=== PATIENT | female | born 1945 | race Caucasian/White ===

== ENCOUNTER 2020-09-02 14:11 | Emergency (ER) | payer MEDICARE ==
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
[2020-09-02] MEDS ORDERED: Zofran 4 MG/2 ML VIAL ONE (16:23)
[2020-09-02] MEDS ORDERED: Hydromorphone 1 mg/ml Injection ONE ×2 (16:23→19:56)
[2020-09-02] MEDS: Hydromorphone 1 mg/ml Injection IV ONE ×2 (16:24→19:57)
[2020-09-02] MEDS: Zofran 4 MG/2 ML VIAL IV ONE (16:24)
--- NOTE | 2020-09-02 16:30 | XRAY ---
Indication: Pain following fall. Multiple contiguous axial images obtained through the cervical spine. Sagittal and coronal reformatted images obtained. Comparison: None Age-appropriate osteopenia. Axial images negative for acute fracture, suspicious bony lesions, or spinal canal stenosis. There is mild/moderate C4-C7 degenerative endplate spurring and mild/moderate multilevel bilateral degenerative facet hypertrophy. Additional mild atlantoaxial joint of arthropathy. Sagittal and coronal reformatted images demonstrates lordotic straightening, positional versus paraspinal spasm. Mild dextroscoliosis and C4-C7 degenerative disc space loss. No acute compression fracture, subluxation, or jumped facet. Normal appearing craniocervical junction. Visualized noncontrasted soft tissues demonstrates mild bilateral carotid calcifications. Base of the brain and lung apices unremarkable. Impression: 1. Lordotic straightening, positional versus paraspinal spasm. 2. Negative acute fracture/subluxation. 3. Osteopenia and multilevel degenerative changes.
--- NOTE | 2020-09-02 16:34 | XRAY ---
Indication: Pain following fall. Multiple contiguous axial images obtained through the lumbar spine. Sagittal and coronal reformatted images obtained. Comparison: None Age-appropriate osteopenia. Axial images demonstrates L1 vertebral body fracture with approximately 25% height loss. No spinal canal or foraminal encroachment. No other acute fracture, suspicious bony lesions, or spinal canal stenosis. Minimal L5-S1 degenerative vacuum disc phenomena. Facets are symmetric with L4-S1 degenerative facet arthropathy. Sagittal and coronal reformatted images demonstrates normal lumbar lordosis. Mild dextrorotoscoliosis centered at L2. Remaining vertebral body height/disc space is maintained. Visualized noncontrasted soft tissues demonstrates 2.3 cm gallstone and mild aortoiliac calcifications. Impression: 1. L1 compression fracture with approximately 25% height loss. 2. Osteopenia, L5-S1 degenerative vacuum disc, and mild dextrorotoscoliosis. 3. Incidental 2.3 cm gallstone.
[2020-09-02 19:22] VITALS: O2SAT 98
[2020-09-02 19:56] VITALS: BP 146/76; PULSE 74
== END 2020-09-02 20:00 | disposition short-term general hospital (02) ==
LOC: ED 14:11
DX: S32.019A Unspecified fracture of first lumbar vertebra, initial encounter for closed fracture (principal); W22.8XXA Striking against or struck by other objects, initial encounter; Y93.89 Activity, other specified; Y92.89 Other specified places as the place of occurrence of the external cause
CPT/HCPCS: 51702; 72125; 72131; 96374; 96375; 96376; 99285; J1170; J2405